=== PATIENT | female | born 1975 | race Caucasian/White ===

== ENCOUNTER 2016-07-20 12:12 | Emergency (ER) | payer SELFPAY ==
[~2016-07-20] VITALS: Ht 162.6 cm; Wt 51.0 kg
[~2016-07-20 12:12] MED LIST: POLY10O RIGHT EAR; TRAM50 PO
[2016-07-20 12:15] VITALS: BP 140/87; PULSE 74; RESP 18; TEMP 97.2; O2SAT 98
[2016-07-20] MEDS ORDERED: ZOLO50TA PO (12:26)
[2016-07-20] MEDS ORDERED: LORA-474 PO (12:26)
--- NOTE | 2016-07-20 13:27 | PD ---
HPI Chief Complaint: Musculoskeletal Complaint Time Seen by Provider: 12:42 Travel History International Travel<30 days: No Contact w/Intl Traveler<30days: No Traveled to known affect area: No History of Present Illness HPI 3 days prior this patient inverted her right ankle causing pain. It became severe while she was walking at or today. Ambulation worsens pain. There is a constant throbbing sensation. She reports a history of operative repair with hardware in place. No other injury to report. PFSH Past Medical History Bipolar Disorder: Yes Anxiety: Yes Diminished Hearing: No Influenza Vaccination: No ?: Not Past Surgical History Section: Yes Other Surgery: Yes (breast augmentation) Social History Alcohol Use: Yes Tobacco Use: Yes Substance Use: No Allergies-Medications (Allergen,Severity, Reaction): Coded Allergies: Penicillin (Verified Allergy, Unknown, 07/20/16) Reported Meds & Prescriptions Reported Meds & Active Scripts Active Reported Ativan (Lorazepam) 1 Mg Tab 1 Mg PO Q8H PRN Zoloft (Sertraline HCl) 50 Mg Tab 50 Mg PO DAILY Review of Systems Except as stated in HPI: all other systems reviewed are Neg General / Constitutional: No: Fever Physical Exam Narrative GENERAL: 41 yo F, WNWD, mild anxiety MUSCULOSKELETAL: Extremities without clubbing, cyanosis, or edema. No obvious deformities. Ecchymosis about dorsum of r foot. Minimal TTP posterior R fibula. NEUROLOGICAL: Awake and alert. No obvious cranial nerve deficits. Motor grossly within normal limits. Five out of 5 muscle strength in the arms and legs. Normal speech. PSYCHIATRIC: Appropriate mood and affect; insight and judgment normal. Data Data Last Documented VS Vital Signs Date Time Temp Pulse Resp B/P Pulse Ox O2 Delivery O2 Flow Rate FiO2 07/20/16 12:15 97.2 74 18 140/87 98 VS reviewed Orders Ankle, Complete ([id number]) (07/20/16 ) ^ Jaden Bandage (07/20/16 12:48) Ice / Cold Pack PRN (07/20/16 12:48) MDM Medical Decision Making Medical Screen Exam Complete: Yes Emergency Medical Condition: Yes Medical Record Reviewed: Yes Differential Diagnosis ankle sprain, ankle fracture, dislocation, contusion Narrative Course ANKLE XRAY: no acute fracture; hardware intact ICE/JADEN/ELEVATION/REST DISCUSSED. MOTRIN NEEDED. ORTHO: DR DENARD INFORMATION PROVIDED Diagnosis Primary Impression: Ankle injury Qualified Code: S99.911D - Ankle injury, right, subsequent encounter Referrals: Travis Conner Jr., MD 2 days Additional Instructions: You have a choice when it comes to health care, and we are glad that you chose [facility]. Hopefully, we have met your expectations on today's visit. You are welcome to return to [facility] at any time, as we are committed to meeting the health care needs of our community. Med/Other Pt SpecificInfo: No Change to Meds Disposition: 01 DISCHARGE HOME Condition: Stable Aj Fischer MD July 20, 2016 13:27
--- NOTE | 2016-07-20 13:47 | RADHPO ---
EXAM DATE/TIME: 07/20/2016 13:10 [facility] COMPARISON: No previous studies available for comparison. INDICATIONS : Right ankle pain after twisting foot MEDICAL HISTORY : None. SURGICAL HISTORY : Right ankle hardware placement ENCOUNTER: Initial ACUITY: 4 - 6 days PAIN SCORE: 9/10 LOCATION: Right entire ankle FINDINGS: Patient is status post talar fusion. Extensive degenerative changes are seen talar dome and tibial p luz marina. Alignment is anatomic, fracture is not appreciated. CONCLUSION: Degenerative change without fracture. Jass Cabral MD FACR on July 20, 2016 at 13:34 Board Certified Radiologist. This report was verified electronically.
== END 2016-07-20 14:12 | disposition home or self-care (01) ==
LOC: PHEFT 12:12
DX: S99.911A Unspecified injury of right ankle, initial encounter (principal); F31.9 Bipolar disorder, unspecified; F41.9 Anxiety disorder, unspecified; Z72.0 Tobacco use; Z88.0 Allergy status to penicillin; Z79.899 Other long term (current) drug therapy; X50.1XXA Overexertion from prolonged static or awkward postures, initial encounter
CPT/HCPCS: 73610; 99283

== ENCOUNTER 2016-08-29 11:48 | Emergency (ER) | payer SELFPAY ==
[~2016-08-29] VITALS: Ht 162.6 cm; Wt 52.0 kg
[~2016-08-29 11:48] MED LIST changes: +LORA-474 PO; -POLY10O RIGHT EAR; -TRAM50 PO; +ZOLO50TA PO
[2016-08-29 11:56] VITALS: BP 137/82; PULSE 94; RESP 18; TEMP 99.1; O2SAT 98
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
== END 2016-08-29 12:50 | disposition left against medical advice (07) ==
LOC: NEPD 11:48
DX: R51 Headache (principal); M54.2 Cervicalgia; R68.84 Jaw pain; F31.9 Bipolar disorder, unspecified; F41.9 Anxiety disorder, unspecified; F17.200 Nicotine dependence, unspecified, uncomplicated; Z79.899 Other long term (current) drug therapy; Y04.2XXA Assault by strike against or bumped into by another person, initial encounter; Z88.0 Allergy status to penicillin
CPT/HCPCS: 99283

== ENCOUNTER 2016-09-08 09:58 | Emergency (ER) | payer SELFPAY ==
[2016-09-08 09:59] VITALS: BP 135/80; PULSE 104; RESP 24; TEMP 99.5; O2SAT 94
--- NOTE | 2016-09-08 10:30 | PD ---
HPI . sore throat x few days Chief Complaint: ENT Complaint Time Seen by Provider: 10:28 Travel History International Travel<30 days: No Contact w/Intl Traveler<30days: No Traveled to known affect area: No History of Present Illness HPI 41-year-old female here with complaints of sore throat. Patient has been trying to take NyQuil at home and has not had any relief. She thinks she may have strep throat. She admits to feeling feverish at home. Today her temperature is 99.5. She denies any other issues. PFSH Past Medical History Bipolar Disorder: Yes Anxiety: Yes Diminished Hearing: No Past Surgical History Section: Yes Other Surgery: Yes (breast augmentation) Social History Alcohol Use: Yes (lastnight, beer) Tobacco Use: Yes (1 ppd, 1 hr ago) Substance Use: No Allergies-Medications (Allergen,Severity, Reaction): Coded Allergies: Penicillin (Verified Allergy, Unknown, 07/20/16) Reported Meds & Prescriptions Reported Meds & Active Scripts Active Zithromax Z-Arnulfo (Azithromycin) 250 Mg Dspk 250 Mg PO DIRECTED 500 MG (2 tabs) day 1, then 1 tab days 2-5. Reported Ativan (Lorazepam) 1 Mg Tab 1 Mg PO Q8H PRN Zoloft (Sertraline HCl) 50 Mg Tab 50 Mg PO DAILY Review of Systems General / Constitutional: No: Fever Eyes: No: Visual changes HENT: Positive: Sore Throat, No: Headaches Cardiovascular: No: Chest Pain or Discomfort Respiratory: No: Shortness of Breath Gastrointestinal: No: Abdominal Pain Genitourinary: No: Dysuria Musculoskeletal: No: Pain Skin: No Rash Neurologic: No: Weakness Psychiatric: No: Depression Endocrine: No: Polydipsia Hematologic/Lymphatic: No: Easy Bruising Physical Exam Narrative GENERAL: AAO x 3, no acute distress, Well-nourished, well-developed patient. SKIN: Warm and dry. No visible rashes or bruising. HEAD: Normocephalic and atraumatic. EYES: No scleral icterus. No injection or drainage. ENT: No nasal drainage noted. Mucous membranes pink. Airway patent. Moderate erythema with exudates on bilateral tonsils, uvula is midline NECK: Supple, trachea midline. No JVD. cervical Chain lymphadenopathy CARDIOVASCULAR: Regular rate and rhythm without murmurs, gallops, or rubs. RESPIRATORY: Breath sounds equal bilaterally. No accessory muscle use. No rhonchi or rales. GASTROINTESTINAL: Visual inspection normal EXTREMITIES: No cyanosis or edema. BACK: No obvious deformity. NEURO: CN II-12 intact, PSYCH: AAO x 3, normal affect. Data Data Last Documented VS Vital Signs Date Time Temp Pulse Resp B/P Pulse Ox O2 Delivery O2 Flow Rate FiO2 09/08/16 09:59 99.5 104 24 135/80 94 Room Air MDM Medical Decision Making Medical Screen Exam Complete: Yes Emergency Medical Condition: Yes Medical Record Reviewed: Yes Differential Diagnosis Exudative pharyngitis, less likely mononucleosis, less likely sinusitis Narrative Course 41-year-old female here with what appears to be exudative pharyngitis. She is requesting strep test, but I explained to her that I will go ahead and treat her as this appears to be strep. She has allergies to penicillin, therefore I will give her azithromycin. I recommend salt water gargles Patient verbalized understanding of instructions, questions were answered, and thanked me for their care. I advised them if their condition worsens, please return to the nearest emergency room for further care. Diagnosis Primary Impression: Exudative pharyngitis Patient Instructions: General Instructions Additional Instructions: Take medications as prescribed. Try salt water gargles. Do not share utensils, toothbrush, etc. If you develop difficulty breathing, please go to the nearest emergency room. Please return to emergency department if your symptoms return or worsen. Follow up with your primary care provider. Take medications as prescribed. Med/Other Pt SpecificInfo: Prescription(s) given Scripts Azithromycin (Zithromax Z-Arnulfo)250 Mg [id number] Mg PO DIRECTED #1 DSPK 500 MG (2 tabs) day 1, then 1 tab days 2-5. Prov:Dusty Ibanez MD 09/08/16 Disposition: 01 DISCHARGE HOME Condition: Stable Valerie Aguilera Sep 08, 2016 10:30
[2016-09-08] MEDS ORDERED: ZITHTAB PO (10:31)
== END 2016-09-08 10:46 | disposition home or self-care (01) ==
LOC: NEPK 09:58
DX: J02.9 Acute pharyngitis, unspecified (principal)
CPT/HCPCS: 99283

== ENCOUNTER 2016-09-11 21:17 | Inpatient (IN) | payer SELFPAY ==
[~2016-09-11 21:17] MED LIST changes: +ZITHTAB PO
[2016-09-11 21:21] VITALS: BP 115/69; PULSE 96; RESP 16; TEMP 98.7; O2SAT 100
[2016-09-11] MEDS ORDERED: XANA1TAB2 PO (23:21)
[2016-09-11] MEDS ORDERED: SODIUM CHLOR 0.9% 1000 ML INJ 1,000 ML IV SCH (23:28)
[2016-09-11] MEDS ORDERED: DEXAMETHASONE SOD PHOS 4 MG/ML VIAL IV PUSH ONE (23:30)
[2016-09-11] MEDS ORDERED: ONDANSETRON HCL 4 MG/2 ML VIAL IVP ONE (23:30)
[2016-09-11] MEDS ORDERED: MORPHINE SULFATE 4 MG/ML INJ IV PUSH ONE (23:30)
[2016-09-11] MEDS ORDERED: SODIUM CHLORIDE 0.9% FLUSH 10 ML FLUSH IV FLUSH PRN (23:30)
--- NOTE | 2016-09-11 23:42 | PD ---
HPI Chief Complaint: ENT Complaint Time Seen by Provider: 23:37 Travel History International Travel<30 days: No Contact w/Intl Traveler<30days: No Traveled to known affect area: No History of Present Illness HPI Patient comes back to the Emergency Department complaining of worsening sore throat ongoing for approximately week. Patient was seen approximately 3 days ago and given a prescription for Zithromax. Patient states she completed the prescription however her symptoms continue to get worse. Patient tried multiple [id number] medications without improvement of symptoms. Patient states she feels as though her throat is closing. Pain is scratchy burning pain in her throat that radiates to her ears. Patient reports one episode of vomiting along with some diarrhea. Denies any blood in the vomit or diarrhea. Denies any chest pain, shortness of breath, or abdominal pain. Patient states she just feels achy all over. PFSH Past Medical History Bipolar Disorder: Yes Anxiety: Yes Depression: Yes Diminished Hearing: No ?: Not LMP: 09/09/16 Past Surgical History Section: Yes Other Surgery: Yes (breast augmentation) Social History Alcohol Use: Yes Tobacco Use: Yes (1 ppd, 1 hr ago) Substance Use: Yes (marijuana ) Allergies-Medications (Allergen,Severity, Reaction): Coded Allergies: Penicillin (Verified Allergy, Unknown, 09/11/16) Reported Meds & Prescriptions Reported Meds & Active Scripts Active Zithromax Z-Arnulfo (Azithromycin) 250 Mg Dspk 250 Mg PO DIRECTED 500 MG (2 tabs) day 1, then 1 tab days 2-5. Reported Xanax (Alprazolam) 1 Mg Tab 1 Mg PO Q8H PRN Zoloft (Sertraline HCl) 50 Mg Tab 50 Mg PO DAILY Review of Systems Except as stated in HPI: all other systems reviewed are Neg Physical Exam Narrative GENERAL: Well-developed, well nourished, in no acute distress, and ill appearing , but nontoxic. SKIN: Focused skin assessment warm and dry. HEAD: Atraumatic. Normocephalic. EYES: Pupils equal and round. EOMI. No scleral icterus. No injection or drainage. ENT: No nasal bleeding or discharge. Mucous membranes pink and moist. Tympanic membranes pearly munson bilaterally. Posterior pharynx erythematous without exudate. Uvula is midline. Tonsils are enlarged and touching. No tenderness to facial sinuses palpation. Patient is able swallow her own saliva and is not drooling. NECK: Trachea midline. Cervical lymphadenopathy noted. Supple. No nuclear rigidity. CARDIOVASCULAR: Regular rate and rhythm. No murmur appreciated. RESPIRATORY: No accessory muscle use. No respiratory distress. Clear to auscultation. Breath sounds equal bilaterally. GASTROINTESTINAL: Abdomen soft, non-tender, nondistended, and no guarding. Hepatic and splenic margins not palpable. Normal bowel sounds 4. No pulsatile mass. MUSCULOSKELETAL: No obvious deformities. No clubbing. No cyanosis. No edema. Full range of motion. NEUROLOGICAL: Awake and alert. No obvious cranial nerve deficits. Motor grossly within normal limits. Normal speech. PSYCHIATRIC: Appropriate mood and affect; insight and judgment normal. Data Data Last Documented VS Vital Signs Date Time Temp Pulse Resp B/P Pulse Ox O2 Delivery O2 Flow Rate FiO2 09/12/16 00:02 100 Room Air 09/11/16 21:21 98.7 96 16 115/69 Orders Basic Metabolic Panel (Bmp) (09/11/16 23:28) Comprehensive Metabolic Panel (09/11/16 23:28) Prothrombin Time / Inr (Pt) (09/11/16 23:28) Act Partial Throm Time (Ptt) (09/11/16 23:28) Iv Access Insert/Monitor (09/11/16 23:28) Ecg Monitoring (09/11/16 23:28) Oximetry (09/11/16 23:28) Morphine Inj (Morphine Inj) (09/11/16 23:30) Ondansetron Inj (Zofran Inj) (09/11/16 23:30) Sodium Chlor 0.9% 1000 Ml Inj (Ns 1000 M (09/11/16 23:28) Sodium Chloride 0.9% Flush (Ns Flush) (09/11/16 23:30) Monoscreen (09/11/16 23:28) Influenzae A/B Antigen (09/11/16 23:28) Ct Soft Tiss Neck W Iv Cont (09/11/16 ) Dexamethasone Inj (Decadron Inj) (09/11/16 23:30) Complete Blood Count With Diff (09/12/16 00:12) Iohexol 350 Inj (Omnipaque 350 Inj) (09/12/16 00:13) Ketorolac Inj (Toradol Inj) (09/12/16 00:45) Clindamycin Inj (Cleocin Inj) (09/12/16 00:45) Throat Culture (09/12/16 00:37) Group A Rapid Strep Screen (09/12/16 00:37) Admit Order (Ed Use Only) (09/12/16 00:54) Labs Laboratory Tests Test 09/11/16 09/12/16 23:50 00:10 Prothrombin Time 9.6 SEC Prothromb Time International 0.9 RATIO Ratio Activated Partial 27.3 SEC Thromboplast Time Sodium Level 139 MEQ/L Potassium Level 4.2 MEQ/L Chloride Level 101 MEQ/L Carbon Dioxide Level 30.4 MEQ/L Anion Gap 8 MEQ/L Blood Urea Nitrogen 7 MG/DL Creatinine 0.87 MG/DL Estimat Glomerular Filtration 71 ML/MIN Rate Random Glucose 81 MG/DL Calcium Level 9.6 MG/DL Total Bilirubin 0.4 MG/DL Aspartate Amino Transf 12 U/L (AST/SGOT) Alanine Aminotransferase 18 U/L (ALT/SGPT) Alkaline Phosphatase 108 U/L Total Protein 8.1 GM/DL Albumin 3.6 GM/DL Monoscreen NEG White Blood Count 14.4 TH/MM3 Red Blood Count 4.25 MIL/MM3 Hemoglobin 13.8 GM/DL Hematocrit 40.0 % Mean Corpuscular Volume 94.1 FL Mean Corpuscular Hemoglobin 32.4 PG Mean Corpuscular Hemoglobin 34.4 % Concent Red Cell Distribution Width 12.4 % Platelet Count 364 TH/MM3 Mean Platelet Volume 7.6 FL Neutrophils (%) (Auto) 57.5 % Lymphocytes (%) (Auto) 23.0 % Monocytes (%) (Auto) 13.3 % Eosinophils (%) (Auto) 4.8 % Basophils (%) (Auto) 1.4 % Neutrophils # (Auto) 8.3 TH/MM3 Lymphocytes # (Auto) 3.3 TH/MM3 Monocytes # (Auto) 1.9 TH/MM3 Eosinophils # (Auto) 0.7 TH/MM3 Basophils # (Auto) 0.2 TH/MM3 CBC Comment DIFF FINAL Differential Comment MDM Medical Decision Making Medical Screen Exam Complete: Yes Emergency Medical Condition: Yes Interpretation(s) CT the neck read by the radiologist shows: Enlarged tonsillar pillars bilaterally which touch in the midline and mildly narrow the airway. There are also enlarged reactive lymph nodes in the neck bilaterally. However, no tonsillar or peritonsillar abscess is identified. Differential Diagnosis Clare, retropharyngeal abscess, peritonsillar abscess, tonsillitis, pharyngitis, other Narrative Course Patient seen and examined. Initial laboratory and radiological studies were ordered. Patient was given IV Decadron, IV morphine, IV Zofran, and IV fluids. CT did not show an abscess. Patient was reassessed with Dr. Matias, who evaluated the patient requested patient admitted tonsillitis secondary to failed outpatient therapy and difficulty swallowing. Patient denies any improvement with initial treatment. Throat culture and strep screen were obtained. Patient given a dose of Toradol and clindamycin. Discussed all planes plan care of patient is agreeable for admission. All questions were answered. Patient remained stable through ED course. Physician Communication Physician Communication [phone] Dominguez, who is agreeable to admit the patient. Diagnosis Primary Impression: Acute tonsillitis Qualified Code: J03.90 - Acute tonsillitis, unspecified etiology Admitting Information Admitting Physician Requests: Admit Condition: Stable Yevgeniy Schofield Sep 11, 2016 23:42
[2016-09-12] VITALS (8 sets, daily range): BP systolic 97–137; BP diastolic 59–95; PULSE 67–102; RESP 15–18; TEMP 98–98.5; O2SAT 96–100
[2016-09-12] MEDS ORDERED: IOHEXOL 350 MG/ML 10 ML VIAL (for RAD DIAG) IV ONE (00:13)
[2016-09-12 00:18] LABS: APTT (PATIENT) 27.3 SEC (24.3-30.1); INTERNATIONAL NORMALIZED RATIO 0.9 RATIO; PROTHROMBIN TIME - PATIENT 9.6 SEC (9.8-11.6)
[2016-09-12 00:25] LABS: AUTOMATED NEUTROPHIL # 8.3 TH/MM3 (1.8-7.7); BASOPHIL # 0.2 TH/MM3 (0-0.2); BASOPHIL % 1.4 % (0.0-2.0); EOSINOPHIL # 0.7 TH/MM3 (0-0.4); EOSINOPHIL % 4.8 % (0.0-4.0); HEMO FLAGS DIFF FINAL; LYMPHOCYTE # 3.3 TH/MM3 (1.0-4.8); MEAN CELL VOLUME 94.1 FL (80.0-100.0); MEAN CORPUSCULAR HEMOGLOBIN 32.4 PG (27.0-34.0); MEAN CORPUSCULAR HGB CONC 34.4 % (32.0-36.0); MONO % 13.3 % (0.0-8.0); NEUT % 57.5 % (16.0-70.0); PLATELET COUNT 364 TH/MM3 (150-450); RED BLOOD COUNT 4.25 MIL/MM3 (4.00-5.30); RED CELL DISTRIBUTION WIDTH 12.4 % (11.6-17.2); WHITE BLOOD COUNT 14.4 TH/MM3 (4.0-11.0)
--- NOTE | 2016-09-12 00:26 | RADRPT ---
EXAM DATE/TIME: 09/12/2016 00:05 [facility] COMPARISON: No previous studies available for comparison. INDICATIONS : Pain and swelling in neck; patient just finished antibiotics for strept throat but did not get any be tter. IV CONTRAST: 60 cc Omnipaque 350 (iohexol) IV RADIATION DOSE: 11.72 CTDIvol (mGy) MEDICAL HISTORY : None SURGICAL HISTORY : section. Breast augmentation. ENCOUNTER: Initial ACUITY: 3 days PAIN SCALE: 5/10 LOCATION: Bilateral neck TECHNIQUE: Volumetric scanning of the neck was performed. Using automated exposure control and adjustment of th e mA and/or kV according to patient size, radiation dose was kept as low as reasonably achievable to obtain optimal diagnostic quality images. DICOM format image data is available electronically for r eview and comparison. FINDINGS: NASOPHARYNX: The nasopharyngeal airway has a normal configuration. No mucosal thickening or mass is seen. OROPHARYNX: The intrinsic muscles of the tongue are symmetric. The tonsillar pillars are enlarged and touch in t he midline. No tonsillar or peritonsillar abscess is identified. The prevertebral soft tissues are n ot thickened. LARYNX: The supraglottic, glottic, and infraglottic structures demonstrate no abnormality. SALIVARY GLANDS: The parotid and submandibular glands are intact. LYMPH NODES: There are enlarged lymph nodes within the neck bilaterally measuring up to 14 mm in short axis. THYROID: Homogeneous enhancement without nodule. BONES: No acute abnormality is identified. CONCLUSION: Enlarged tonsillar pillars bilaterally which touch in the midline and mildly narrow the airway. There are also enlarged reactive lymph nodes in the neck bilaterally. However, no tonsillar or peritonsill ar abscess is identified. Mohsen Coley MD on September 12, 2016 at 0:20 Board Certified Radiologist. This report was verified electronically.
[2016-09-12 00:35] LABS: ALT (GPT) 18 U/L (10-53); ANION GAP 8 MEQ/L (5-15); AST (GOT) 12 U/L (15-37); BICARBONATE 30.4 MEQ/L (21.0-32.0); BLOOD UREA NITROGEN 7 MG/DL (7-18); CHLORIDE 101 MEQ/L (98-107); GLOMERULAR FILTRATION RATE 71 ML/MIN (>89); POTASSIUM 4.2 MEQ/L (3.5-5.1); SODIUM (NA) 139 MEQ/L (136-145)
[2016-09-12 00:37] LABS: ALKALINE PHOSPHATASE 108 U/L (45-117); TOTAL BILIRUBIN ADULT 0.4 MG/DL (0.2-1.0)
[2016-09-12] MEDS ORDERED: KETOROLAC TROMETHAMINE 30 MG/ML (IVP) VIAL IV PUSH ONE (00:45)
[2016-09-12] MEDS ORDERED: CLINDAMYCIN INJ 600 MG in SODIUM CHLORIDE 0.9% INJ 100 ML IV ONE (00:45)
[2016-09-12] MEDS ORDERED: ONDANSETRON HCL 4 MG/2 ML VIAL IVP PRN (01:00)
[2016-09-12] MEDS ORDERED: ACETAMINOPHEN 325 MG TAB PO PRN (01:00)
[2016-09-12] MEDS ORDERED: BISACODYL 10 MG SUPP RECTAL PRN (01:00)
[2016-09-12] MEDS ORDERED: MAGNESIUM HYDROXIDE SUSP 30 ML CUP PO PRN (01:00)
[2016-09-12] MEDS ORDERED: SENNOSIDES 8.6 MG TAB PO PRN (01:00)
[2016-09-12] MEDS ORDERED: LACTULOSE SYRUP 20 GM/30 ML CUP PO PRN (01:00)
[2016-09-12] MEDS ORDERED: LIDOCAINE VISCOUS 2% SOLN 15 ML UDC SWISH-SWAL PRN (01:15)
[2016-09-12] MEDS: SODIUM CHLOR 0.9% 1000 ML INJ 1,000 ML IV SCH ×3 (01:34→21:24)
[2016-09-12] MEDS: REMOVE OLD PATCH T-DERMAL SCH ×2 (01:45→09:00)
[2016-09-12] MEDS: NICOTINE 21 MG/24 HR PATCH T-DERMAL SCH ×2 (02:10→10:04)
[2016-09-12] MEDS: ALPRAZolam 1 MG TAB PO PRN ×3 (02:10→18:34)
--- NOTE | 2016-09-12 02:14 | HHI.HP ---
HPI Service [facility] Primary Care Physician Non-Staff Admission Diagnosis severe tonsillitis, failed outpatient therapy Diagnoses: (1) Acute tonsillitis Diagnosis: Principal (2) Failure of outpatient treatment Diagnosis: Principal (3) Anxiety Diagnosis: Principal (4) Tobacco abuse Diagnosis: Principal Travel History International Travel<30 Days: No Contact w/Intl Traveler <30 Da: No Traveled to Known Affected Are: No History of Present Illness This is a 41-year-old female with a PMH of Anxiety, Depression and Tobacco Abuse of sore throat and dysphagia x1 wk. Was seen in ER on 09/08/16 for similar complaints, Flu negative, Strep negative, diagnosed w/ Exudative Pharyngitis and d/c'd home on Zithro x5 days, taking antibiotics as prescribed, however no improvement in symptoms. Today, felt "throat closing", unable to take PO x2 days. On arrival, BP 115/69, HR 96, O2 sat 100% on RA, Afebrile. WBC 14.4. Chemistry unremarkable except for GFR 71. INR 0.9. CT Neck with enlarged tonsillar pillars bilaterally which touch in the midline and mildly narrows the airway, enlarged reactive lymph nodes bilaterally. S/p Decadron and Clinda in ER. Review of Systems Except as stated in HPI: all other systems reviewed are Neg ROS: 14 point review of systems otherwise negative. Past Family Social History Past Medical History PMH: Anxiety, Depression and Tobacco Abuse Past Surgical History PAST SURGICAL HISTORY: , Breast Augmentation Allergies: Coded Allergies: Penicillin (Verified Allergy, Unknown, 09/11/16) Family History PAST FAMILY HISTORY: Reviewed. No h/o DM or CAD Social History PAST SOCIAL HISTORY: Occasional alcohol. Smokes 1ppd. +Marijuana. Physical Exam Vital Signs Vital Signs Date Time Temp Pulse Resp B/P Pulse Ox O2 Delivery O2 Flow Rate FiO2 09/12/16 02:00 98.1 67 18 115/59 98 09/12/16 00:02 100 Room Air 09/11/16 21:21 98.7 96 16 115/69 100 Room Air Physical Exam PE: GENERAL: Very pleasant middle-aged white female in no acute distress, no respiratory compromise, speaking without difficulty. HEENT: PERRLA, EOMI. No scleral icterus or conjunctival pallor. No lid lag or facial droop. +lymphadenopathy, +tenderness to palpation, pharyngeal erythema, no exudates noted. CARDIOVASCULAR: Regular rate and rhythm. No obvious murmurs to auscultation. No chest tenderness to palpation. RESPIRATORY: No obvious rhonchi or wheezing. Clear to auscultation. Breath sounds equal bilaterally. GASTROINTESTINAL: Abdomen soft, non-tender, nondistended. BS normal. MUSCULOSKELETAL: Extremities without clubbing, cyanosis, or edema. No obvious deformities. NEUROLOGICAL: Awake, alert and oriented x4. No focal neurologic deficits. Moving both upper and lower extremities spontaneously. Laboratory Laboratory Tests Test 09/11/16 09/12/16 23:50 00:10 Prothrombin Time 9.6 Prothromb Time International 0.9 Ratio Activated Partial 27.3 Thromboplast Time Sodium Level 139 Potassium Level 4.2 Chloride Level 101 Carbon Dioxide Level 30.4 Anion Gap 8 Blood Urea Nitrogen 7 Creatinine 0.87 Estimat Glomerular Filtration 71 Rate Random Glucose 81 Calcium Level 9.6 Total Bilirubin 0.4 Aspartate Amino Transf 12 (AST/SGOT) Alanine Aminotransferase 18 (ALT/SGPT) Alkaline Phosphatase 108 Total Protein 8.1 Albumin 3.6 Monoscreen NEG White Blood Count 14.4 Red Blood Count 4.25 Hemoglobin 13.8 Hematocrit 40.0 Mean Corpuscular Volume 94.1 Mean Corpuscular Hemoglobin 32.4 Mean Corpuscular Hemoglobin 34.4 Concent Red Cell Distribution Width 12.4 Platelet Count 364 Mean Platelet Volume 7.6 Neutrophils (%) (Auto) 57.5 Lymphocytes (%) (Auto) 23.0 Monocytes (%) (Auto) 13.3 Eosinophils (%) (Auto) 4.8 Basophils (%) (Auto) 1.4 Neutrophils # (Auto) 8.3 Lymphocytes # (Auto) 3.3 Monocytes # (Auto) 1.9 Eosinophils # (Auto) 0.7 Basophils # (Auto) 0.2 CBC Comment DIFF FINAL Differential Comment Date/Time Procedure Status Source Growth 09/12/16 00:47 Group A Streptococcus Screen (JANNIE) - Final Complete Throat 09/12/16 00:47 Group A Streptococcus Screen Received Throat Pending 09/11/16 23:50 Influenza Types A,B Antigen (JANNIE) - Final Complete Nasal Washing NEGATIVE FOR FLU A AND B ANTIGEN.... Result Diagram: 09/12/16 0010 09/11/16 2350 Assessment and Plan Problem List: (1) Acute tonsillitis ICD Code: J03.90 Status: Acute (2) Failure of outpatient treatment ICD Code: Z78.9 Status: Acute (3) Anxiety ICD Code: F41.9 Status: Acute (4) Tobacco abuse ICD Code: Z72.0 Status: Acute Assessment and Plan A/P: 1. Tonsillitis: c/o sore throat x1 wk, now w/ ongoing symptoms, dysphagia, CT Neck w/ enlarged tonsillar pillars bilaterally which touch in the midline and mildly narrow airway and enlarged reactive lymph nodes bilaterally, no acute abscess noted, images reviewed by me. S/p Decadron and Clinda in ER. Will continue w/ Decadron/Clinda, viscous Lidocaine prn. Consult ENT for further eval as needed. Analgesics/antiemetics. 2. Failed Outpt Tx: seen in ER on 09/08/16 for similar complaints, diagnosed w / Exudative Pharyngitis, on Zithro x3 days w/ no improvement. Continue w/ IV Abx as above. 3. Anxiety: On Xanax at home, will restart home medications. 4. Tobacco Abuse: Pt counselled. Requesting NicoDerm patch 5. DVT Prophylaxis: SCD/Teds. 6. Social work for d/c planning as needed. 7. Case discussed w/ ER physician at length. Physician Certification 2 Midnight Certification Type: Admission for Inpatient Services Order for Inpatient Services The services are ordered in accordance with Medicare regulations or non- Medicare payer requirements, as applicable. In the case of services not specified as inpatient-only, they are appropriately provided as inpatient services in accordance with the 2-midnight benchmark. Estimated LOS (days): 2 days is the estimated time the patient will need to remain in the hospital, assuming treatment plan goals are met and no additional complications. Post-Hospital Plan: Not yet determined Problem Qualifiers (1) Acute tonsillitis: Qualified Code: J03.90 - Acute tonsillitis, unspecified etiology Maya Dominguez MD Sep 12, 2016 02:14
[2016-09-12] MEDS: CLINDAMYCIN INJ 900 MG in SODIUM CHLORIDE 0.9% INJ 100 ML IV SCH ×3 (05:01→21:54)
[2016-09-12] MEDS: ACETAMINOPHEN/HYDROcodone 325 MG/5 MG TAB PO PRN ×3 (05:04→22:00)
[2016-09-12] MEDS: DEXAMETHASONE SOD PHOS 4 MG/ML VIAL IV PUSH SCH ×3 (06:42→21:25)
[2016-09-12] MEDS: SODIUM CHLORIDE 0.9% FLUSH 10 ML FLUSH IV FLUSH PRN ×4 (06:42→23:05)
[2016-09-12] MEDS: MORPHINE SULFATE 4 MG/ML INJ IV PRN ×5 (07:54→23:05)
[2016-09-12] MEDS: DOCUSATE SODIUM 50 MG/SENNA 8.6 MG TAB PO SCH ×2 (09:00→21:25)
[2016-09-12] MEDS: SODIUM CHLORIDE 0.9% FLUSH 10 ML FLUSH IV FLUSH SCH ×2 (09:00→20:18)
[2016-09-12] MEDS: SERTRALINE HCL 50 MG TAB PO SCH (10:04)
[2016-09-13] MEDS: MORPHINE SULFATE 4 MG/ML INJ IV PRN ×3 (02:05→09:55)
[2016-09-13] MEDS: SODIUM CHLORIDE 0.9% FLUSH 10 ML FLUSH IV FLUSH PRN ×2 (02:05→05:38)
[2016-09-13] MEDS: ALPRAZolam 1 MG TAB PO PRN ×2 (02:46→09:54)
[2016-09-13] MEDS: ACETAMINOPHEN/HYDROcodone 325 MG/5 MG TAB PO PRN ×2 (04:15→11:29)
[2016-09-13] MEDS: CLINDAMYCIN INJ 900 MG in SODIUM CHLORIDE 0.9% INJ 100 ML IV SCH ×2 (05:37→13:35)
[2016-09-13] MEDS: DEXAMETHASONE SOD PHOS 4 MG/ML VIAL IV PUSH SCH ×2 (05:37→13:34)
[2016-09-13 07:21] LABS: AUTOMATED NEUTROPHIL # 12.5 TH/MM3 (1.8-7.7); BASOPHIL % 0.2 % (0.0-2.0); EOSINOPHIL % 0.1 % (0.0-4.0); HEMATOCRIT 32.1 % (35.0-46.0); HEMO FLAGS DIFF FINAL; LYMPH % 13.5 % (9.0-44.0); LYMPHOCYTE # 2.2 TH/MM3 (1.0-4.8); MEAN CELL VOLUME 94.9 FL (80.0-100.0); MEAN CORPUSCULAR HGB CONC 33.7 % (32.0-36.0); MONO % 8.4 % (0.0-8.0); NEUT % 77.8 % (16.0-70.0); PLATELET COUNT 303 TH/MM3 (150-450); RED BLOOD COUNT 3.39 MIL/MM3 (4.00-5.30); RED CELL DISTRIBUTION WIDTH 12.5 % (11.6-17.2)
[2016-09-13] MEDS: NICOTINE 21 MG/24 HR PATCH T-DERMAL SCH (07:34)
[2016-09-13] MEDS: DOCUSATE SODIUM 50 MG/SENNA 8.6 MG TAB PO SCH (07:35)
[2016-09-13] MEDS: SERTRALINE HCL 50 MG TAB PO SCH (07:35)
[2016-09-13] MEDS: REMOVE OLD PATCH T-DERMAL SCH (07:35)
[2016-09-13] MEDS: SODIUM CHLORIDE 0.9% FLUSH 10 ML FLUSH IV FLUSH SCH (07:36)
[2016-09-13 07:49] LABS: ANION GAP 9 MEQ/L (5-15); AST (GOT) 13 U/L (15-37); BICARBONATE 24.7 MEQ/L (21.0-32.0); BLOOD UREA NITROGEN 9 MG/DL (7-18); CHLORIDE 107 MEQ/L (98-107); GLOMERULAR FILTRATION RATE 102 ML/MIN (>89); POTASSIUM 4.4 MEQ/L (3.5-5.1); SODIUM (NA) 141 MEQ/L (136-145)
[2016-09-13 07:58] VITALS: BP 136/90; PULSE 72; RESP 15; TEMP 98.2; O2SAT 99
[2016-09-13 08:04] LABS: ALKALINE PHOSPHATASE 87 U/L (45-117); ALT (GPT) 14 U/L (10-53); TOTAL BILIRUBIN ADULT 0.2 MG/DL (0.2-1.0)
--- NOTE | 2016-09-13 09:56 | HHI.PR ---
Subjective Remarks patient up and ambulating around with a service dog - states she has Skip for PTSD patient states feeling better- but insistent on being seen by an ENT I observed with her to be sipping water from a straw and ate her breakfast with no difficulty swallowing Objective Vitals Vital Signs Date Time Temp Pulse Resp B/P Pulse Ox O2 Delivery O2 Flow Rate FiO2 09/13/16 07:58 98.2 72 15 136/90 99 09/13/16 05:15 16 09/12/16 23:48 98.5 74 18 137/80 98 09/12/16 21:01 98.0 74 18 124/67 97 09/12/16 15:42 98.0 92 15 122/77 99 09/12/16 11:38 98.1 92 15 114/73 98 Result Diagram: 09/13/1612 09/13/16 0512 Imaging Last Impressions Neck CT 09/11/16 0000 Signed Impressions: Service Date/Time: Monday, September 12, 2016 00:05 - CONCLUSION: Enlarged tonsillar pillars bilaterally which touch in the midline and mildly narrow the airway. There are also enlarged reactive lymph nodes in the neck bilaterally. However, no tonsillar or peritonsillar abscess is identified. Mohsen Coley MD Objective Remarks awake and alert, oriented x 3, speech clear anicteric sclerae throat- bilateral enlarged tonsils, mild erythema, no exudates + tender posterior cervical lymphadenopathy lungs clear regular rhythm abdomen-soft nontender extremities no edema neuro exam- unremarkable A/P Problem List: (1) Acute tonsillitis ICD Code: J03.90 Status: Acute (2) Failure of outpatient treatment ICD Code: Z78.9 Status: Acute (3) Anxiety ICD Code: F41.9 Status: Acute (4) Tobacco abuse ICD Code: Z72.0 Status: Acute Assessment and Plan 41 years old female Bilateral tonsillitis- Streptococcus species- treatment failure vs recurrent infection - CT shows no abscess - was treated as OP with zithromax - , clinically improving- when this started days ago- she "couldn't even talk and unable to eat", previous ER visit- shows large exudates - on IV clindaymcine- change to po clindamycin 300 mg po qid x 7 days + PCN allergy - OP ff up with an ENT - explained to her History of Anxiety disorder- continue on meds- zoloft and Xanax Tobacco Abuse- smoker- 1 pack per day- patient counselled- "trying". Nicoderm patch Will ask CM for patient assistance program- patient self pay d/w her that this could be recurrent infection or treatment failure- not really can tell if she did take + PCN allergy- will start her on po clindamycin 450 mg po qid x 7 days OP ff up with PCP and ENT as OP patient took her own IV line out DC home today seen with staff at bedside patient expressed understanding instruct patient- take lots of fluids Return to ER if develops difficulty swallowing or breathing, fever or chills Problem Qualifiers (1) Acute tonsillitis: Qualified Code: J03.90 - Acute tonsillitis, unspecified etiology Hunter Smith MD Sep 13, 2016 09:56
[2016-09-13] MEDS ORDERED: MORPHINE SULFATE 4 MG/ML INJ IV PRN (12:00)
[2016-09-13] MEDS: SODIUM CHLOR 0.9% 1000 ML INJ 1,000 ML IV SCH (12:32)
[2016-09-13 15:52] VITALS: BP 134/70; PULSE 74; RESP 15; TEMP 98.8; O2SAT 98
[2016-09-13] MEDS ORDERED: CLIN1CAP6 PO (16:12)
== END 2016-09-13 17:46 | disposition home or self-care (01) | DRG 153 ==
LOC: NEPD 21:17 → NEDA 09-12 00:56 → NEPFCDU 09-12 01:51
PROVIDERS: ADMIT Internal Medicine; ATTEND Internal Medicine
DX: J03.90 Acute tonsillitis, unspecified (principal); F41.9 Anxiety disorder, unspecified; F17.210 Nicotine dependence, cigarettes, uncomplicated; Z88.0 Allergy status to penicillin
CPT/HCPCS: 70491; 80053; 85025; 85610; 85730; 86308; 87081; 87804; 87880; 96361; 96374; 96375; J1100; J1885; J2270; J2405; J7030; Q9967

== ENCOUNTER 2017-04-04 15:18 | Emergency (ER) | payer SELFPAY ==
[~2017-04-04] VITALS: Ht 162.6 cm; Wt 50.0 kg
[~2017-04-04 15:18] MED LIST changes: +CLIN300C5 PO; -LORA-474 PO; +XANA1TAB2 PO
[2017-04-04 15:20] VITALS: BP 125/76; PULSE 96; RESP 16; TEMP 98.5; O2SAT 100
[2017-04-04] MEDS ORDERED: DEXAMETHASONE SOD PHOS 20 MG/5 ML VIAL IM ONE (16:15)
[2017-04-04] MEDS ORDERED: CLINDAMYCIN PHOS 600 MG/4 ML VIAL IM ONE (16:15)
--- NOTE | 2017-04-04 16:20 | PD ---
HPI Chief Complaint: Cold / Flu Symptoms Time Seen by Provider: 15:43 Travel History International Travel<30 days: No Contact w/Intl Traveler<30days: No Traveled to known affect area: No History of Present Illness HPI 42-year-old female presents to the emergency room for evaluation of sore throat , body aches, malaise, headache, and subjective fevers for the past 2 days. Patient states symptoms came on suddenly. She went to her primary care physician and was tested positive for strep. She could not afford flu testing so she deferred at this time but believes she is positive for the flu because of how awful she feels. States she has just been lying around the house. She was given azithromycin yesterday and has taken 2 doses but reports no improvement in symptoms. Patient has history of exudative tonsillitis and was told to have her tonsils removed but she cannot afford to. She has had to be admitted for this in the past. She only has history of depression and PTSD. PFSH Past Medical History Blood Disorders: No Bipolar Disorder: Yes Anxiety: Yes Depression: Yes Cancer: No Cardiovascular Problems: No Chemotherapy: No Diminished Hearing: No Endocrine: No Gastrointestinal Disorders: No Genitourinary: No Musculoskeletal: No Neurologic: No Psychiatric: Yes Reproductive: No Respiratory: No Radiation Therapy: No ?: Not Past Surgical History Section: Yes Other Surgery: Yes (breast augmentation, MIGUEL ANKLE SURG) Social History Alcohol Use: Yes Tobacco Use: Yes (1 ppd) Substance Use: Yes (MARIjUANA) Allergies-Medications (Allergen,Severity, Reaction): Coded Allergies: penicillin G (Unverified Allergy, Unknown, WAS TOLD CHILD, 04/04/17) Reported Meds & Prescriptions Reported Meds & Active Scripts Active Clindamycin (Clindamycin HCl) 300 Mg Cap 300 Mg PO Q6H 7 Days Prednisone 20 Mg Tab 40 Mg PO DAILY Take 40 mg (2 tablets) daily for 5 days Zithromax Z-Arnulfo (Azithromycin) 250 Mg Dspk 250 Mg PO DIRECTED 500 MG (2 tabs) day 1, then 1 tab days 2-5. Reported Xanax (Alprazolam) 1 Mg Tab 1 Mg PO Q8H PRN Zoloft (Sertraline HCl) 50 Mg Tab 50 Mg PO DAILY Review of Systems Except as stated in HPI: all other systems reviewed are Neg Physical Exam Narrative GENERAL: Well-nourished, well-developed female in no acute distress. Afebrile. Ambulatory. SKIN: Focused skin assessment warm/dry. HEAD: Normocephalic. EYES: No scleral icterus. No injection or drainage. ENT: Mucosa pink and moist. Significant erythema with bilateral exudates. Tonsils are grade 4. No uvular edema. No uvular, palatal, or tonsillar deviation. Airway patent. Nasal turbinates appear normal without nasal blood, purulent drainage or septal hematoma. NECK: Supple, trachea midline. No JVD or lymphadenopathy. CARDIOVASCULAR: Regular rate and rhythm without murmurs, gallops, or rubs. RESPIRATORY: Breath sounds equal bilaterally. No accessory muscle use. Data Data Last Documented VS Vital Signs Date Time Temp Pulse Resp B/P (MAP) Pulse Ox O2 Delivery O2 Flow Rate FiO2 04/04/17 15:20 98.5 96 16 125/76 (92) 100 Orders Orders Influenzae A/B Antigen (04/04/17 16:12) Clindamycin Inj (Cleocin Inj) (04/04/17 16:15) Dexamethasone Inj (Decadron Inj) (04/04/17 16:15) Ed Discharge Order (04/04/17 16:53) MDM Medical Decision Making Medical Screen Exam Complete: Yes Emergency Medical Condition: Yes Medical Record Reviewed: Yes Differential Diagnosis Tonsillitis, recurrent strep, influenza, pneumonia Narrative Course 42 year-old female presents to the emergency room for evaluation of recurrent exudative pharyngitis/tonsillitis that started 2 days ago. She went to her primary care physician yesterday and reportedly had a positive strep test. She wanted to be tested for the flu but could not afford it yesterday. She was started on a Z-Arnulfo for strep. States in the past it has taken multiple rounds of antibiotics to resolve this. She was supposed to have her tonsils removed but could not afford the procedure. Patient has been seen in the hospital for the same previously. She was admitted for IV antibiotics and Decadron but she states nothing was ever resolved. CT at that time showed significant tonsillar edema but no peritonsillar abscess. Physical exam today reveals grade 4 tonsils that are equal bilaterally. There are beefy red with exudates. Airway is still patent. Patient has no difficulty breathing and is lying back, sleeping, handling her secretions without difficulty. There is no indication for admission at this time. She was given clindamycin and Decadron were administered in the ED for double coverage in case of persistence. She will be discharged with prescriptions for prednisone and clindamycin. Told to follow- up with primary care physician or return for worsening symptoms. She understands and agrees to plan. Diagnosis Primary Impression: Exudative pharyngitis Referrals: Ear / Nose / Throat Specialist Primary Care Physician Additional Instructions: Continue azithromycin. Prednisone and clindamycin as directed, until gone. Follow-up with an ENT physician. Return for worsening symptoms. Med/Other Pt SpecificInfo: Prescription(s) given Scripts Clindamycin (Clindamycin) 300 Mg Cap 300 MG PO Q6H for Infection for 7 Days, #28 CAP 0 Refills Prov: Crystal Yun MD 04/04/17 Prednisone (Prednisone) 20 Mg Tab 40 MG PO DAILY, #10 TAB 0 Refills Take 40 mg (2 tablets) daily for 5 days Prov: Crystal Yun MD 04/04/17 Disposition: 01 DISCHARGE HOME Condition: Stable Ale Lund Apr 04, 2017 16:20
[2017-04-04] MEDS ORDERED: PRED20 PO (16:53)
[2017-04-04] MEDS ORDERED: CLIN300C5 PO (16:54)
== END 2017-04-04 17:35 | disposition home or self-care (01) ==
LOC: PHEFT 15:18
DX: J02.9 Acute pharyngitis, unspecified (principal); F17.210 Nicotine dependence, cigarettes, uncomplicated
CPT/HCPCS: 87804; 96372; 99283; J1100